=== PATIENT | male | born 1985 | race Caucasian/White ===

== ENCOUNTER 2018-09-11 20:47 | Inpatient (IN) | payer OTHER ==
[2018-09-11] MEDS ORDERED: NS 1,000 ML IV ONE ×2 (21:04→21:15)
[2018-09-11] MEDS ORDERED: fentaNYL 100 MCG/2 ML INJ IVP ONE (21:15)
[2018-09-11] MEDS ORDERED: ONDANSETRON 4 MG/2 ML VIAL IVP ONE (21:16)
[2018-09-11 21:25] LABS: PLATELET COUNT 259 10^3/uL (150-400)
[2018-09-11] MEDS ORDERED: IOPAMIDOL (ISOVUE-300) 100 ML BTL ONE (21:57)
[2018-09-11] MEDS ORDERED: HYDROmorphONE/DILAUDID 2 MG/ML INJ IVP ONE (22:38)
[2018-09-12] MEDS ORDERED: ONDANSETRON 4 MG/2 ML VIAL IVP PRN (00:43)
[2018-09-12] MEDS ORDERED: HYDROmorphONE/DILAUDID 1 MG/ML INJ IVP PRN (00:43)
--- NOTE | 2018-09-12 00:47 | SOAPPROG ---
SOAP Progress Note Assessment/Plan: Assessment: 33 male with recurrent sbo near ileocecal anastamosis/ emesis tonite admit for eval Plan:npo, ivs, ng, possible surgery 09/12/18 00:45 Objective: Vital Signs Temp Pulse Resp BP Pulse Ox 37.5 C 115 H 18 108/73 92 09/12/18 00:07 09/12/18 00:07 09/12/18 00:07 09/12/18 00:07 09/12/18 00:07 09/10/18 09/11/18 09/12/18 05:59 05:59 05:59 Intake Total 2000 Output Total 150 Balance 1850 ICD10 Worksheet Patient Problems: Problems Problem Status Onset Gastrointestinal bleed Acute
[2018-09-12] MEDS: D5W 1/2 NS W/ 20 KCl/L 1,000 ML IV SCH ×4 (00:55→20:58)
[2018-09-12 05:41] LABS: PLATELET COUNT 223 10^3/uL (150-400)
--- NOTE | 2018-09-12 10:15 | ASMTCMCOM ---
CM Note CM Note Notes: CM reviewed pts chart. Pt is a 33 y/o man admitted for a bowel obstruction. Pt will most likely d/c independent when medically stable. Dr. Ware may take pt into surgery. Pt is currently NPO. No therapies ordered at this time. CM available for changes. Plan: Independent Date Signed: 09/12/2018 10:14 AM Electronically Signed By:PEDRITO Gracia
--- NOTE | 2018-09-12 12:17 | PDMN ---
Medical Necessity Medical necessity: Pt meets inpt criteria per MD order and MCG M-210, Intestinal Obstruction, 2 days, Admission is indicated for: Partial bowel obstruction with clinically significant signs or symptoms- pt presented w/N/V requiring NG tube placement. 33 y/o w/recurrent SBO near ileocecal anastomosis , pt has hx of SBO and R hemicolectomy, may require surgery, still not passing gas/no BM, NGT remains in place, anticipate>2MN for ongoing eval/management of above.
[2018-09-12] MEDS: KETOROLAC 15 MG/1 ML SDV IVP PRN (20:58)
[2018-09-13] MEDS: D5W 1/2 NS W/ 20 KCl/L 1,000 ML IV SCH ×2 (04:15→12:21)
[2018-09-13] MEDS: KETOROLAC 15 MG/1 ML SDV IVP PRN (04:29)
[2018-09-13] MEDS ORDERED: ACETAMINOPHEN 325 MG TAB PO PRN (11:58)
--- NOTE | 2018-09-13 13:15 | SOAPPROG ---
NATHALIE Progress Note Assessment/Plan: Assessment: 33 male with recurrent sbo near ileocecal anastamosis/ emesis tonite admit for eval Plan:npo, ivs, ng, possible surgery 09/12/18 00:45 09/13/18 13:14 MUCH IMPROVED/ABDOMEN SOFT NONTENDER WITH NO PAIN/MODERATE NG OUTPUT/2 WAY ABDOMEN MARKEDLY IMPROVED WILL START CLEAR LIQUIDS WITH NG CLAMPED HOPEFULLY NG DC TODAY AND FOLLOW-UP SMALL-BOWEL FOLLOW-THROUGH IN THE A.M./ RISKS AND OPTIONS FULLY DISCUSSED Objective: Vital Signs Temp Pulse Resp BP Pulse Ox 36.9 C 75 14 135/77 H 98 09/13/18 11:41 09/13/18 11:41 09/13/18 11:41 09/13/18 11:41 09/13/18 11:41 Laboratory Results 09/12/18 04:29 09/12/18 04:29 09/12/18 09/13/18 09/14/18 05:59 05:59 05:59 Intake Total 2000 Output Total 500 3550 Balance 1500 -3550 ICD10 Worksheet Patient Problems: Problems Problem Status Onset Gastrointestinal bleed Acute
--- NOTE | 2018-09-14 11:18 | GHP ---
[f rep st] PREOP HISTORY AND PHYSICAL DATE OF ADMISSION: 09/11/2018 Patient is a 33-year-old male who is admitted at this time for recurrent small bowel obstruction. He is a patient well known to me and has had multiple abdominal surgeries, including colon resection. This started as an with a malrotation surgery. He has subsequently had a partial right colect jeffrey and reanastomosis and has had other admissions for obstruction. He has been having crampy pains and distention for over [address] scan and belly films are consistent with small bowel obstructio n. He is admitted at this time for observation, NG suction, IV fluids, and possible surgery. Risks and options have been fully discussed. PAST MEDICAL HISTORY: Includes multiple laparotomies, including a right colon resection. MEDICATIONS: None. ALLERGIES: Metoclopramide and sulfa. REVIEW OF SYSTEMS: Negative on a full 10-point review except as related in the HPI. FAMILY HISTORY: Noncontributory. PHYSICAL EXAMINATION: GENERAL: An alert, vigorous 33-year-old male in no acute distress. HEENT: R eveals no icterus. His pupils are normal, with no oral lesions. Occlusion is normal. NECK: Supple , with full range of motion. Full pulses. No adenopathy. No thyromegaly. CHEST: Clear and symmet irvin. COR: Regular rhythm. ABDOMEN: Soft, distended, minimally tender. No obvious hernias. Large abdominal midline incision and decreased bowel sounds. GENITALIA: Normal. EXTREMITIES: Full rang e of motion, full pulses. NEUROLOGIC: Physiologic. PSYCH: Alert, oriented, and cooperative. IMPRESSION: Recurrent small bowel obstruction. PLAN: Admit for observation, NG suction, IV fluids. /[id number]/MODL
--- NOTE | 2018-09-14 12:10 | SOAPPROG ---
NATHALIE Progress Note Assessment/Plan: Assessment: 33 male with recurrent sbo near ileocecal anastamosis/ emesis tonite admit for eval Plan:npo, ivs, ng, possible surgery 09/12/18 00:45 09/13/18 13:14 MUCH IMPROVED/ABDOMEN SOFT NONTENDER WITH NO PAIN/MODERATE NG OUTPUT/2 WAY ABDOMEN MARKEDLY IMPROVED WILL START CLEAR LIQUIDS WITH NG CLAMPED HOPEFULLY NG DC TODAY AND FOLLOW-UP SMALL-BOWEL FOLLOW-THROUGH IN THE A.M./ RISKS AND OPTIONS FULLY DISCUSSED 09/14/18 12:09 pain free/ large bm/ sbft wnl/ abd soft, nontender advance diet and probably home today Objective: Vital Signs Temp Pulse Resp BP Pulse Ox 36.8 C 95 16 131/75 H 96 09/14/18 12:03 09/14/18 12:03 09/14/18 12:03 09/14/18 12:03 09/14/18 12:03 Laboratory Results 09/12/18 04:29 09/12/18 04:29 09/13/18 09/14/18 09/15/18 05:59 05:59 05:59 Intake Total 2500 Output Total 3550 200 Balance -3550 2300 ICD10 Worksheet Patient Problems: Problems Problem Status Onset Gastrointestinal bleed Acute
--- NOTE | 2018-09-14 13:24 | ASMTCMCOM ---
CM Note CM Note Notes: CM discussed with RN, patient scheduled for Small Bowel Follow Through today & evaluation with Dr. Ware. Discharge continues to be likely home independent. CM to follow. D/C Plan: Home independent. Date Signed: 09/14/2018 01:24 PM Electronically Signed By:Cait Choi
[2018-09-14 15:33] VITALS: BP 126/80
== END 2018-09-14 16:41 | disposition home or self-care (01) | DRG 390 ==
LOC: F3E 09-12 00:01
PROVIDERS: ADMIT Surgery; ATTEND Surgery
DX: K56.690 Other partial intestinal obstruction (principal); E86.9 Volume depletion, unspecified
CPT/HCPCS: 96374; J1885; J2405; J3010; Q9967